=== PATIENT | male | born 1960 | race Caucasian/White ===

== ENCOUNTER 2017-02-19 11:51 | Emergency (ER) | payer BC ==
[~2017-02-19] VITALS: Ht 182.9 cm; Wt 112.0 kg
[2017-02-19 11:57] VITALS: TEMP 37.1; Ht 182.9 cm; Wt 112.0 kg
[2017-02-19] MEDS ORDERED: HYDR-5688 PO (12:56)
[2017-02-19 13:03] VITALS: BP 142/79; PULSE 71; O2SAT 96
--- NOTE | 2017-02-20 14:17 | EMERGENCY ROOM VISIT NOTE ---
ED Visit Note First contact with patient: 12:04 Chief Complaint: Back pain. History of Present Illness: Mr. Wei is a 56-year-old white male who ambulates into the ED accompanied by female friend complaining of lumbar back pain. Historically patient reports that he has a 30 year history of chronic back pain. He reports this has never really been evaluated by medical professional and he has had no imaging done. He does report intermittently he goes to a chiropractor and has mild to moderate relief of his discomfort. Patient reports approximately 2 days ago he woke up with mild lumbar back pain. He then did work around the house including shoveling coal and raking rocks and since that time his pain has gradually increased in intensity. At rest he describes his pain as a sharp discomfort and with moving he describes it as a stabbing pain. The pain is located in a bandlike fashion across the L4-S15 area on both sides of the lumbar spine. The pain is currently rated the pain is radiating into the right buttocks and then down the posterior right leg to the level of the knee. His pain worsens with all movement of the back. He has not identified any alleviating factors related to the pain. He reports he has been using Flexeril that was previously prescribed for shoulder injury without relief of his discomfort. Additionally he reports intermittently when he is moving from the sitting to standing position he feels like his right leg is about to give out but it does not. He denies any associated fevers, chills, sweats, skin eruptions, skin color changes, upper respiratory tract symptoms, chest pain, shortness of breath, abdominal pain, nausea, vomiting, diarrhea, constipation, rectal bleeding, black /tarry stools, genital paresthesias, bowel and bladder dysfunction, lower extremity numbness/tingling. Review of Systems: As noted above in history of present illness. All body systems were reviewed and found to be negative as noted above. Past Medical History: Hypertension, asthma, status post appendectomy and pin placement and hip Current Medications: Patient denies. Allergies to Medications: Patient denies. Social History: Patient is currently employed; he feels safe in his home environment; he admits to tobacco and alcohol use. Physical Examination: Vital Signs: Date Time Temp Pulse Resp B/P Pulse Ox O2 Delivery O2 Flow Rate FiO2 02/19/17 13:03 71 142/79 96 02/19/17 11:57 37.1 78 16 161/82 96 GENERAL: 56-year-old male in moderate distress due to pain, nontoxic-appearing, afebrile and hemodynamically stable. NEUROLOGICAL: Awake, alert and oriented to person, place and time. Answering questions appropriately and following commands. Normal gait. Good hand eye coordination. No focal motor sensory deficits. SKIN: Warm, dry and pink. No soft tissue eruptions or trauma noted. BACK: No tenderness over the bony cervical and thoracic spine. No CVA tenderness. Mild tenderness over the bilateral S5-S1 area and throughout the sacroiliac area. I do not appreciate any bony deformity, step-offs, crepitus, swelling or ecchymosis. Decreased range of motion in all movements due to pain. He has a negative right straight leg test but does have a slightly positive left leg test. THORAX: Lungs sounds are clear to auscultation and equal bilaterally with symmetrical chest wall. ABDOMEN: Flat, soft and nontender. Positive bowel sounds in all quadrants. No guarding, rigidity or organomegaly. EXTREMITIES: Moves all extremities well on command and with purpose. All distal neurovascular statuses are intact and equal bilaterally. No calf tenderness or cords. Lower Extremities: No tenderness throughout the joints of the musculature. 4/5 muscle strength in flexion, extension, abduction and abduction of the hips, flexion and extension of the knees and plantar flexion and dorsiflexion of the ankles. 2+ patellar and Achilles the tendon reflexes intact and equal bilaterally. He was able to distinguish light sensations through all dermatomes. ED Course: Patient is assessed as noted above. Patient was educated about tonight's findings and instructed on his treatment plan; he verbalizes understanding and agreement with this plan. Clinical Impression: Lumbar back pain. Disposition: Patient discharged home in stable condition accompanied by his and ; prior to departure he was reassessed and subjectively reported slightly better and rated his discomfort 8/10. Plan: Patient was placed on a sliding pain scale of ibuprofen, acetaminophen and [place] ; appropriate precautions were discussed with the patient with narcotic use. Patient was encouraged to continue his current Flexeril prescription for muscle spasm. Patient was encouraged use ice on areas of pain. Patient was educated on proper lifting and moving techniques. Patient was encouraged to follow-up with his primary care provider if no better in 3-5 days. Patient was signed off of 3 days of work. Patient was encouraged return ED for fevers abdominal pain, leg weakness/ numbness/tingling, rectal/genital paresthesias, bowel and bladder dysfunction or any new/concerning symptoms.
[2017-02-20] MEDS ORDERED: LISI-461 PO (14:23)
[2017-02-20] MEDS ORDERED: MONT4GRA PO (14:23)
[2017-02-20] MEDS ORDERED: ASPCH81X PO (14:23)
[2017-02-20] MEDS ORDERED: CYCL5TAB PO (14:23)
[2017-02-20] MEDS ORDERED: IBUP-103 PO (14:23)
[2017-02-20] MEDS ORDERED: PSEU60TA80 PO (14:23)
[2017-02-20] MEDS ORDERED: MONT1TAB3 PO (17:14)
[2017-02-20] MEDS ORDERED: CETI10TA84 PO (17:14)
[2017-02-20] MEDS ORDERED: ALBU18002 INH (17:14)
[2017-02-20] MEDS ORDERED: MTR/600 PO (17:14)
[2017-02-20] MEDS ORDERED: NZRCR EXT (17:14)
[2017-02-22] MEDS ORDERED: HYDR-5688 PO (17:55)
[2017-02-22] MEDS ORDERED: TRD10 PO (17:55)
[2017-02-22] MEDS ORDERED: CLC100 PO (17:55)
[2017-02-22] MEDS ORDERED: METH4PAK PO (17:55)
[2017-03-13] MEDS ORDERED: IBUP-1450 PO (09:48)
[2017-03-13] MEDS ORDERED: ALBU18002 INH (09:48)
[2017-03-13] MEDS ORDERED: CYCL10TA6 PO (09:48)
[2017-03-13] MEDS ORDERED: HYDR-5688 PO (09:48)
[2017-03-13] MEDS ORDERED: CETI10TA84 PO (09:48)
[2017-03-13] MEDS ORDERED: NZRCR TOP (09:48)
[2017-03-13] MEDS ORDERED: ASPI81TA28 PO (09:48)
[2017-03-13] MEDS ORDERED: LISI-791 PO (09:48)
== END 2017-02-19 13:05 | disposition home or self-care (01) ==
LOC: C.EDB 11:52 → C.EDD 13:05
DX: M54.9 Dorsalgia, unspecified (principal); I10 Essential (primary) hypertension; J45.909 Unspecified asthma, uncomplicated; F17.200 Nicotine dependence, unspecified, uncomplicated

== ENCOUNTER 2017-02-20 13:30 | Observation (INO) | payer BC ==
[~2017-02-20] VITALS: Ht 182.9 cm; Wt 113.8 kg
[~2017-02-20 13:30] MED LIST: HYDR-5688 PO
[2017-02-20] MEDS ORDERED: ONDANSETRON INJ 2 MG/ML 2 ML VIAL IV STA (13:45)
[2017-02-20] MEDS ORDERED: HYDROmorphone INJ 2 MG/ML SYR/VIAL IV STA (13:45)
[2017-02-20] MEDS ORDERED: MONT4GRA PO (14:23)
[2017-02-20] MEDS ORDERED: LISI-461 PO (14:23)
[2017-02-20] MEDS ORDERED: IBUP-103 PO (14:23)
[2017-02-20] MEDS ORDERED: CYCL5TAB PO (14:23)
[2017-02-20] MEDS ORDERED: PSEU60TA80 PO (14:23)
[2017-02-20] MEDS ORDERED: ASPCH81X PO (14:23)
[2017-02-20 14:28] LABS: BASO % 0.2 %; BASO ABS # 0.02 K/uL (0-0.2); COMPLETE YES; EOS % 0.6 %; HEMATOCRIT 45.7 % (42-52); IG% 0.3 %; LYMPH % 11.7 %; LYMPH ABS # 1.55 K/uL (1.2-3.4); MEAN CORPUSCULAR HEMOGLOBIN 33.5 pg (25-34); MEAN CORPUSCULAR HGB CONC 35.2 g/dl (32-36); MEAN PLATELET VOLUME 9.1 fL (7.4-10.4); MONO % 5.9 %; NEUT % 81.3 %; PLATELET COUNT 268 K/uL (130-400); RED BLOOD COUNT 4.81 M/uL (4.7-6.1)
[2017-02-20 14:53] LABS: CREATININE 0.66 mg/dl (0.60-1.40)
[2017-02-20 14:54] LABS: BUN/CREATININE RATIO 20.3 (10-20); CALCIUM 8.8 mg/dl (8.5-10.1); POTASSIUM 4.2 mmol/L (3.5-5.1)
[2017-02-20 14:56] LABS: C-REACTIVE PROTEIN 1.36 mg/dl (0-0.29)
--- NOTE | 2017-02-20 16:02 | DIAGNOSTIC IMAGING REPORT ---
MRI LUMBAR SPINE W/O CONTRAST CLINICAL HISTORY: Back pain with right leg radiculopathy. TECHNIQUE: Sagittal and axial T1, T2 and STIR images were obtained. COMPARISON STUDY: No previous studies for comparison. OBSERVATIONS: The vertebral bodies and posterior elements appear intact. There is no abnormal bony signal present to suggest a marrow replacement process. L1-2: No disc protrusions or extrusions. No evidence of spinal canal or neural foraminal compromise. L2-3: No disc protrusions or extrusions. No evidence of spinal canal or neural foraminal compromise. L3-4: There is a very large central extruded disc herniation with marked compression of the thecal sac. There is no significant foraminal narrowing. L4-5: There is a tiny central disc protrusion. There is no significant spinal or foraminal stenosis. L5-S1: There is a tiny broad-based central disc protrusion. There is no significant spinal or foraminal stenosis. No abnormalities of the conus are visualized on this noncontrast study IMPRESSION: Very large central extruded disc herniation with marked secondary compression of the thecal sac at the L3-4 level. Electronically signed by: Sean Villasenor M.D. 02/20/2017 4:01 PM Dictated Date/Time: 02/20/2017 3:56 PM
[2017-02-20] MEDS ORDERED: HYDROmorphone INJ 0.5 MG/0.5 ML SYR IV STA (16:18)
[2017-02-20] MEDS ORDERED: METHYLPREDNISOLONE 125 MG VIAL IV STA (16:18)
[2017-02-20] MEDS ORDERED: IV FLUIDS COMPLETED PRN (17:00)
[2017-02-20] MEDS ORDERED: ALBU18002 INH (17:14)
[2017-02-20] MEDS ORDERED: MONT1TAB3 PO (17:14)
[2017-02-20] MEDS ORDERED: MTR/600 PO (17:14)
[2017-02-20] MEDS ORDERED: CETI10TA84 PO (17:14)
[2017-02-20] MEDS ORDERED: NZRCR EXT (17:14)
[2017-02-20] MEDS ORDERED: ALBUTEROL HFA 8 GM INHALER INH PRN (17:15)
[2017-02-20] MEDS ORDERED: CYCLOBENZAPRINE HCL 5 MG TAB PO PRN (17:15)
[2017-02-20] MEDS ORDERED: ONDANSETRON INJ 2 MG/ML 2 ML VIAL IV PRN (17:15)
[2017-02-20] MEDS ORDERED: CETIRIZINE HCL 10 MG TAB PO PRN (17:15)
--- NOTE | 2017-02-20 17:49 | History and Physical ---
History & Physical Date & Time of Service: Feb 20, 2017 at 17:20 Chief Complaint: Back Pain Primary Care Physician: Solo Garcia D.OAry History of Present Illness Source: patient, clinic records, hospital records This is a 56 year old male with HTN, asthma, sleep apnea on CPAP, and other problems listed below who presents to the ED with low back pain. Patient reports having intermittent low back pain x 30 years which worsened 4 days ago. There was no recent trauma/ injury. He reports pain in lumbar area which radiates to the right lower extremity with burning pain. He was seen in ER yesterday for his pain and discharged with [place], which he took at home without relief. Then today while getting into the car he felt a popping/ needle like sensation in his low back and almost collapsed from severe pain. He was unable to ambulate due to the pain and was brought to the ER by ambulance. He was treated with total of 1.5 mg Dilaudid and IV Solu-Medrol in ER. Pain is now improved to 3/10. He voided normally this morning. Last BM was 3 days ago. He denies lower extremity weakness, numbness, groin paresthesias, bowel or bladder incontinence, fever, chills, cough, chest pain, SOB, abdominal pain, N/V/D. No history of spinal surgery. Past Medical/Surgical History Medical Problems: (1) Asthma Status: Chronic (2) Back pain Status: Chronic (3) History of Lyme disease Permanent Comment: treated in 2010 Status: Chronic (4) HTN (hypertension) Status: Chronic (5) Obesity Status: Chronic (6) ALEC on CPAP Status: Chronic Surgical Problems: (1) H/O shoulder surgery Status: Chronic (2) H/O vasectomy Status: Chronic (3) History of hip surgery Status: Chronic (4) S/P appendectomy Status: Chronic (5) S/P tonsillectomy and adenoidectomy Status: Chronic Family History FH: cancer MOTHER (breast CA) FH: stomach cancer FATHER Stroke FATHER Social History Smoking Status: Current Some Day Smoker (cigars) Alcohol Use: socially Multi-Drug Resistant Organisms History of MDRO: No Allergies Coded Allergies: No Known Allergies (Unverified , 02/20/17) Home Medications Scheduled Aspirin (Aspirin Chewable), 81 MG PO DAILY Lisinopril (Zestril), 10 MG PO DAILY Montelukast Sodium (Singulair), 1 TAB PO DAILY Scheduled PRN Albuterol Sulfate (Proair Respiclick), 2 PUFFS INH Q4 PRN for SOB/Wheezing Cetirizine (Zyrtec), 10 MG PO DAILY PRN for allergy symptoms Cyclobenzaprine Hcl (Flexeril), 1 TAB PO HS PRN for Muscle Spasms Hydrocodone/Acetaminophen 5MG/325MG ([place] 5MG/325MG), 1-2 TABLET PO Q6H PRN for Pain Ibuprofen (Ibuprofen), 600 MG PO HS PRN for Pain Ketoconazole (Ketoconazole), 1 APPLN EXT DAILY PRN for rash Pseudoephedrine-Guaifenesin (Mucinex D), 1 TAB PO BID PRN for Cough Review of Systems Ten point ROS performed with pertinent positives and negatives noted in HPI. Physical Exam Vital Signs Date Time Temp Pulse Resp B/P Pulse Ox O2 Delivery O2 Flow Rate FiO2 02/20/17 16:15 86 20 103/61 96 Room Air 02/20/17 14:29 78 20 93/77 96 Room Air 02/20/17 14:20 84 20 146/79 97 Room Air 02/20/17 13:34 36.7 15 Room Air General Appearance: no apparent distress, + obese, + pertinent finding (alert 56 year old male, comfortable while lying in bed, daughter at bedside) Head: normocephalic, atraumatic Eyes: normal inspection, PERRL, EOMI, sclerae normal ENT: hearing grossly normal, pharynx normal Neck: supple, trachea midline Respiratory/Chest: lungs clear, normal breath sounds, no respiratory distress, no accessory muscle use Cardiovascular: regular rate, rhythm, no murmur Abdomen/GI: normal bowel sounds, non tender, soft Back: + pertinent finding (+ lumbosacral paraspinal tenderness. + straight leg raise on the left. ) Extremities/Musculoskelatal: no calf tenderness, no pedal edema Neurologic/Psych: alert, normal mood/affect, oriented x 3, + pertinent finding (hip flexion 4/5 bilat. ankle flexion/ extension 5/5 bilat. sensation to light tough grossly intact BLLE. ) Skin: normal color, warm/dry Diagnostics Laboratory Results Results Past 24 Hours Test 02/20/17 14:10 Range/Units White Blood Count 13.20 4.8-10.8 K/uL Red Blood Count 4.81 4.7-6.1 M/uL Hemoglobin 16.1 14.0-18.0 g/dL Hematocrit 45.7 42-52 % Mean Corpuscular Volume 95.0 80-100 fL Mean Corpuscular Hemoglobin 33.5 25-34 pg Mean Corpuscular Hemoglobin Concent 35.2 32-36 g/dl Platelet Count 268 130-400 K/uL Mean Platelet Volume 9.1 7.4-10.4 fL Neutrophils (%) (Auto) 81.3 % Lymphocytes (%) (Auto) 11.7 % Monocytes (%) (Auto) 5.9 % Eosinophils (%) (Auto) 0.6 % Basophils (%) (Auto) 0.2 % Neutrophils # (Auto) 10.73 1.4-6.5 K/uL Lymphocytes # (Auto) 1.55 1.2-3.4 K/uL Monocytes # (Auto) 0.78 0.11-0.59 K/uL Eosinophils # (Auto) 0.08 0-0.5 K/uL Basophils # (Auto) 0.02 0-0.2 K/uL RDW Standard Deviation 47.4 36.4-46.3 fL RDW Coefficient of Variation 13.6 11.5-14.5 % Immature Granulocyte % (Auto) 0.3 % Immature Granulocyte # (Auto) 0.04 0.00-0.02 K/uL Erythrocyte Sedimentation Rate 39 0-14 mm/hr Sodium Level 139 136-145 mmol/L Potassium Level 4.2 3.5-5.1 mmol/L Chloride Level 106 98-107 mmol/L Carbon Dioxide Level 25 21-32 mmol/L Anion Gap 8.0 3-11 mmol/L Blood Urea Nitrogen 13 7-18 mg/dl Creatinine 0.66 0.60-1.40 mg/dl Est Creatinine Clear Calc Drug Dose 160.8 ml/min Estimated GFR () 124.4 Estimated GFR (Non- 107.3 BUN/Creatinine Ratio 20.3 10-20 Random Glucose 88 70-99 mg/dl Calcium Level 8.8 8.5-10.1 mg/dl C-Reactive Protein 1.36 0-0.29 mg/dl Diagnostic Radiology MRI LUMBAR SPINE W/O CONTRAST CLINICAL HISTORY: Back pain with right leg radiculopathy. TECHNIQUE: Sagittal and axial T1, T2 and STIR images were obtained. COMPARISON STUDY: No previous studies for comparison. OBSERVATIONS: The vertebral bodies and posterior elements appear intact. There is no abnormal bony signal present to suggest a marrow replacement process. L1-2: No disc protrusions or extrusions. No evidence of spinal canal or neural foraminal compromise. L2-3: No disc protrusions or extrusions. No evidence of spinal canal or neural foraminal compromise. L3-4: There is a very large central extruded disc herniation with marked compression of the thecal sac. There is no significant foraminal narrowing. L4-5: There is a tiny central disc protrusion. There is no significant spinal or foraminal stenosis. L5-S1: There is a tiny broad-based central disc protrusion. There is no significant spinal or foraminal stenosis. No abnormalities of the conus are visualized on this noncontrast study IMPRESSION: Very large central extruded disc herniation with marked secondary compression of the thecal sac at the L3-4 level. Impression Assessment and Plan INTRACTABLE BACK PAIN/ LUMBAR DISC HERNIATION L-spine MRI- Very large central extruded disc herniation with marked secondary compression of the thecal sac at the L3-4 level Received Dilaudid and Solu-Medrol in ER Pain control with Dilaudid 1 mg IV q4h PRN pain Continue PRN Flexeril PT and OT evaluations Consult orthopedic surgery- Dr. Stuart is aware and will see tomorrow AM CONSTIPATION Added bowel regimen of docusate and Miralax HTN Had one borderline BP in ER Continue lisinopril with parameters ASTHMA Not in exacerbation Continue home inhaler and Singulair SLEEP APNEA Continue CPAP DVT PROPHYLAXIS Heparin SW FULL CODE DISPOSITION Observation to med/surg Follows with Dr. Solo Garcia for primary care Discussed with daughter at bedside Michelle Carlson; she would like to be present for ortho evaluation if possible; phone [phone] Patient seen in collaboration with Dr. Ocampo. Please see his addendum. Attending Addendum Pt was seen and examined with family member at bedside. Agreed with Jonelle CARRENO 's physical exam, assessment and plan. 56 year old male with PMH HTN, asthma, sleep apnea on CPAP, chronic back pain presents to the ED with worsening low back pain. Pt said that for the last few days his back pain get worst. He was seen in the ER last night and was discharge with [place] for the back pain. he said that this morning he heard a popping sound from his back while trying to get in the car. Pt said that after the popping sound he developed 10/10 burning pain in his back that radiated in his Right lower extremity. Denies any bowel or bladder loss. General- No acute distress Head- atraumatic Eyes- PERRL, EOMI ENT- oropharynx clear Neck- supple, no JVD Lungs- clear to auscultation and percussion Heart- regular rhythm; no murmur Abdomen- normal bowel sounds, soft Extremities- no calf tenderness Neuro- alert, oriented x 3; PERRL, EOMI; no facial palsy Skin- warm & dry A/P INTRACTABLE BACK PAIN/ LUMBAR DISC HERNIATION Lumbar MRI showed a very large central extruded disc herniation with marked secondary compression of the thecal sac at the L3-4 level Will do Pain control with Dilaudid 1 mg IV q4h PRN pain Continue PRN Flexeril PT and OT evaluations Consult orthopedic surgery Lab, imaging reviewed Please refer to Jonelle CARRENO's documentation for other problems. Javon Ocampo MD VTE Prophylaxis VTE Risk Assessment Done? Y/N: Yes Risk Level: Low
[2017-02-20 18:19] LABS: PARTIAL THROMBOPLASTIN RATIO 1.1; PROTHROMBIN TIME (PATIENT) 10.9 SECONDS (9.0-12.0)
[2017-02-20] MEDS: HYDROmorphone INJ 1 MG/ML SYR IV PRN (20:03)
[2017-02-20 22:06] VITALS: BP 147/80; PULSE 79; TEMP 37.4; O2SAT 100; Ht 182.9 cm; Wt 113.8 kg
[2017-02-20 22:29] LABS: URINE APPEARANCE CLEAR (CLEAR); URINE BILIRUBIN NEG (NEG); URINE COLOR YELLOW; URINE NITRITE NEG (NEG); URINE SPECIFIC GRAVITY 1.023 (1.000-1.030); UROBILINOGEN NEG (NEG)
[2017-02-20] MEDS: DOCUSATE SODIUM 100 MG CAP PO SCH (22:30)
[2017-02-20] MEDS: POLYETHYLENE (MIRALAX) 17 GM PACK PO SCH (22:30)
[2017-02-20] MEDS: HEPARIN SOD 5000 UNIT/0.5 ML CARP SQ SCH (22:31)
[2017-02-20 22:33] LABS: MANUAL MICROSCOPIC REQUIRED? NO; REVIEW REQ? NO
[2017-02-20 23:14] VITALS: BP 123/68; PULSE 81; TEMP 37.1; O2SAT 95
--- NOTE | 2017-02-20 23:23 | EMERGENCY ROOM VISIT NOTE ---
ED Visit Note First contact with patient: 13:38 Chief Complaint: Back pain. History of Present Illness: Mr. Wei is a 56-year-old white male who is brought into the ED via ambulance accompanied by multiple family members. Historically patient reports that he has a 30 year history of chronic back pain. I have seen this patient last evening for complaints of lumbar back pain. He was found to be stable at that time and discharged with a narcotic prescription and follow-up. He reports today he was getting out of the car and felt a popping sensation in the L4-L5 area and developed an acute onset of severe pain and reported that his right leg gave out he was not able to stand. EMS was activated and was brought into the ED. EMS reports patient was stable and had no acute changes en route. Currently he describes a severe stabbing pain across his lower back in the L4 through S2 on area and into the sacroiliac joints. He rates his discomfort 10/ 10. Pain is now radiating down into the buttocks and posterior leg and then wrapping around at the level of the knee all the way to the lower leg. His pain worsens with all movement of the back, standing, ambulation. He has not identified any alleviating factors related to the pain. Earlier before the acute onset of pain he reports taking his Vicodin as prescribed and had no relief of his discomfort. He denies any associated fevers, chills, sweats, skin eruptions, skin color changes, upper respiratory tract symptoms, chest pain, shortness of breath, abdominal pain, nausea, vomiting, diarrhea, constipation, rectal bleeding, black /tarry stools, genital paresthesias, bowel and bladder dysfunction, lower extremity numbness/tingling. Review of Systems: As noted above in history of present illness. All body systems were reviewed and found to be negative as noted above. Past Medical History: Hypertension, asthma, status post appendectomy and pin placement and hip Current Medications: Patient denies. Allergies to Medications: Patient denies. Social History: Patient is currently employed; he feels safe in his home environment; he admits to tobacco and alcohol use. Physical Examination: Vital Signs: Date Time Temp Pulse Resp B/P Pulse Ox O2 Delivery O2 Flow Rate FiO2 02/20/17 16:15 86 20 103/61 96 Room Air 02/20/17 14:29 78 20 93/77 96 Room Air 02/20/17 14:20 84 20 146/79 97 Room Air 02/20/17 13:34 36.7 15 Room Air GENERAL: 56-year-old male in severe distress due to pain, nontoxic-appearing, afebrile and hemodynamically stable. NEUROLOGICAL: Awake, alert and oriented to person, place and time. Answering questions appropriately and following commands. Normal gait. Good hand eye coordination. No focal motor sensory deficits. SKIN: Warm, dry and pink. No soft tissue eruptions or trauma noted. BACK: No tenderness over the bony cervical and thoracic spine. No CVA tenderness. Mild tenderness over the bilateral S5-S1 area and throughout the sacroiliac area. I do not appreciate any bony deformity, step-offs, crepitus, swelling or ecchymosis. Unable to perform straight leg raise test due to patient discomfort. THORAX: Lungs sounds are clear to auscultation and equal bilaterally with symmetrical chest wall. ABDOMEN: Flat, soft and nontender. Positive bowel sounds in all quadrants. No guarding, rigidity or organomegaly. EXTREMITIES: Moves all extremities well on command and with purpose. All distal neurovascular statuses are intact and equal bilaterally. No calf tenderness or cords. Lower Extremities: No tenderness throughout the joints of the musculature. 4/5 muscle strength in flexion, extension, abduction and abduction of the hips, flexion and extension of the knees and plantar flexion and dorsiflexion of the ankles. 2+ patellar and Achilles the tendon reflexes intact and equal bilaterally. He was able to distinguish light sensations through all dermatomes. ED Course: Patient is assessed as noted above. Laboratory Testing: Test 02/20/17 14:10 Range/Units White Blood Count 13.20 4.8-10.8 K/uL Red Blood Count 4.81 4.7-6.1 M/uL Hemoglobin 16.1 14.0-18.0 g/dL Hematocrit 45.7 42-52 % Mean Corpuscular Volume 95.0 80-100 fL Mean Corpuscular Hemoglobin 33.5 25-34 pg Mean Corpuscular Hemoglobin Concent 35.2 32-36 g/dl Platelet Count 268 130-400 K/uL Mean Platelet Volume 9.1 7.4-10.4 fL Neutrophils (%) (Auto) 81.3 % Lymphocytes (%) (Auto) 11.7 % Monocytes (%) (Auto) 5.9 % Eosinophils (%) (Auto) 0.6 % Basophils (%) (Auto) 0.2 % Neutrophils # (Auto) 10.73 1.4-6.5 K/uL Lymphocytes # (Auto) 1.55 1.2-3.4 K/uL Monocytes # (Auto) 0.78 0.11-0.59 K/uL Eosinophils # (Auto) 0.08 0-0.5 K/uL Basophils # (Auto) 0.02 0-0.2 K/uL RDW Standard Deviation 47.4 36.4-46.3 fL RDW Coefficient of Variation 13.6 11.5-14.5 % Immature Granulocyte % (Auto) 0.3 % Immature Granulocyte # (Auto) 0.04 0.00-0.02 K/uL Erythrocyte Sedimentation Rate 39 0-14 mm/hr Prothrombin Time 10.9 9.0-12.0 SECONDS Prothromb Time International Ratio 1.0 0.9-1.1 Activated Partial Thromboplast Time 29.5 21.0-31.0 SECONDS Partial Thromboplastin Ratio 1.1 Sodium Level 139 136-145 mmol/L Potassium Level 4.2 3.5-5.1 mmol/L Chloride Level 106 98-107 mmol/L Carbon Dioxide Level 25 21-32 mmol/L Anion Gap 8.0 3-11 mmol/L Blood Urea Nitrogen 13 7-18 mg/dl Creatinine 0.66 0.60-1.40 mg/dl Est Creatinine Clear Calc Drug Dose 160.8 ml/min Estimated GFR () 124.4 Estimated GFR (Non- 107.3 BUN/Creatinine Ratio 20.3 10-20 Random Glucose 88 70-99 mg/dl Calcium Level 8.8 8.5-10.1 mg/dl C-Reactive Protein 1.36 0-0.29 mg/dl Lumbar Spine MRI: Was reviewed by myself and read by the radiologist showing L3- L4 with a very large central extruded disc herniation with marked compression of the thecal sac and L5-S1 tiny broad-based central disc protrusion with no significant spinal or foraminal stenosis. Patient was hydrated with normal saline and received a total of 1.5 mg of Dilaudid IV, 4 mg of Zofran IV and 125 mg of Solu-Medrol IV. Patient was reassessed multiple times during his stay in the emergency department. Patient's case was reviewed with Dr. Ken; we agreed on diagnostic approach, treatment, disposition and plan. Patient's case was consulted with Dr. Stuart, orthopedic clinical safety specialist; he questioned the constipation and be home for possible office follow-up I told him I did not feel the patient would feel comfortable going home because of the ongoing pain and feeling like his right leg was weak. He requested that I speak to the hospitalist patient admitted for pain control and he would see him tomorrow morning in the hospital for evaluation. Patient's case was consulted with Jonelle Hensley, hospitalist for medical observation/admission. Patient was educated about tonight's findings. Clinical Impression: Irretractable back pain. L3-L4 disc herniation. Disposition and Plan: Patient be brought in the hospital for observation/ admission; please see hospitalist's notes and orders for final disposition and plan.
[2017-02-21] MEDS: HYDROmorphone INJ 1 MG/ML SYR IV PRN ×5 (00:02→21:45)
[2017-02-21] MEDS: HEPARIN SOD 5000 UNIT/0.5 ML CARP SQ SCH (06:12)
[2017-02-21 07:43] VITALS: BP 114/73; PULSE 77; TEMP 36.7; O2SAT 96
[2017-02-21] MEDS: ACETAMINOPHEN 325 MG TAB PO PRN ×2 (08:04→17:01)
[2017-02-21] MEDS: DOCUSATE SODIUM 100 MG CAP PO SCH ×2 (09:01→20:43)
[2017-02-21] MEDS: MONTELUKAST SOD 10 MG TAB PO SCH (09:01)
[2017-02-21] MEDS: ASPIRIN 81 MG ECTAB PO SCH (09:01)
[2017-02-21] MEDS: LISINOPRIL 10 MG TAB PO SCH (09:01)
[2017-02-21 09:02] VITALS: BP 146/75; PULSE 87
--- NOTE | 2017-02-21 09:31 | CONSULTATION REPORT ---
DATE OF CONSULTATION: 02/20/2017 CHIEF COMPLAINT: Back pain, lower extremity difficulty. HISTORY OF PRESENT ILLNESS: Darci is a delightful patient. I am meeting him first time this morning about 8:30 [facility] up in room 352. He was admitted to the hospitalist service for pain control and I am very thankful for that. He has back and lower extremity difficulty. He has a large disc herniation, lumbar spine. He will became nonambulatory as of yesterday at the Emergency Room. He actually could not stand I believe secondary to pain versus true weakness as his strength is pretty good today and in the bed position. PAST MEDICAL HISTORY: Asthma, chronic back pain, history of Lyme's disease, hypertension, on CPAP. PAST SURGICAL HISTORY: Hip surgery, appendectomy, vasectomy, tonsils and adenoids, shoulder issues. FAMILY HISTORY: Carcinoma. SOCIAL HISTORY: Minimal alcohol. Minimal smoking, no drug history. ALLERGIES: Not known. MEDICATIONS: At home Lisinopril and Singulair. REVIEW OF SYSTEMS: Denies any blurred vision, double vision, weight loss or gain, fevers, sweats, chills, or bowel or bladder incontinence. He has pain which is significant; lower extremity difficulties as well. OBJECTIVE: VITAL SIGNS: Blood pressure 146/80, pulse of 80, respirations of 16. SKIN: Intact. Vascular structures intact. No adenopathy. HEART AND LUNG: Normal, regular rate and rhythm. ABDOMEN: Soft, nontender. MUSCULOSKELETAL: He has paraspinal muscle spasticity. He has significant pain with percussion. He has profound decreased range of motion. NEUROLOGIC: Intact. He had slight weakness I felt in the quadriceps, but it may be secondary to pain. His sensation grossly intact. Motor strength intact. Reflexes intact as well. No gross neurological issues. LABORATORY DATA: White cell count 13.20, hemoglobin 16.1. C-reactive protein 1.36. DIAGNOSTIC IMAGING: At L3-L4 very large central disc protrusion, marked compression of the thecal sac, some foraminal narrowing as well. Some degenerative changes elsewhere but 3-4 is the dominant pathology. IMPRESSION: Disc herniation L3-L4 lumbar spine in a gentleman with no cauda equina signs and relatively intact neurological. DISPOSITION: 1. He will be admitted to the service of the medical team and I am very thankful for that. 2. I have consulted the patient this morning. Surgery may be eminent meaning he may need it. We are not going to jump into it and just place him on the schedule quickly. There is no urgent matter, although pain certainly is concerning. We placed him some Toradol along with some Solu-Medrol or Decadron. Will probably quiet this down. Will get PT involved, OT involved and see if we can get him up and ambulatory. This could play out either we get him home tomorrow or Saturday, schedule surgery as an outpatient down the road or if he cannot get up on his feet and function I will schedule surgery Saturday, Saturday or Saturday of the coming week.
[2017-02-21] MEDS ORDERED: DEXAMETHASONE INJ 8 MG in SYRINGE 0 ML IV SCH (10:00)
[2017-02-21] MEDS: KETOROLAC TROMETHAMINE 15 MG/ML VIAL IV PRN ×2 (12:17→19:59)
--- NOTE | 2017-02-21 14:16 | HISTORY & PHYSICAL EXAMINATION ---
DATE OF ADMISSION: 02/20/2017 SUBJECTIVE: He is improving. Medications helping him immensely. He is taking a walk, albeit short. Still has some numbness and tingling and weakness on the left quadriceps consistent with his imaging and pathology. IMPRESSION: Disk herniation, lumbar spine, L3-L4. DISPOSITION: I anticipate us getting Darci home tomorrow. I would recommend on the with some steroids by mouth along with some Toradol medication for pain and bed rest, essentially up to the bathroom. I would like to see him back in the office if at all possible Saturday or Saturday next week. If he fails, we cannot get him home then we will have to offer him surgery or would be a better option for him. I would like to do this electively during the normal business versus trying to squeeze him on a weekend as I explained to the patient as well. Instructions, precautions I will revisit Darci in the morning, which would be Saturday and again hopefully we can get him home later on tomorrow.
[2017-02-21] MEDS ORDERED: BISACODYL 5 MG TABEC PO PRN (14:30)
--- NOTE | 2017-02-21 14:30 | Progress Note ---
Internal Med Progress Note Date of Service: Feb 21, 2017. Provider Documentation: SUBJECTIVE: Patient c/o pain in lower back, radiating in lower extremities. No localized weakness, no bladder/bowel incontinence. No fever, chills, nausea, vomiting, abdominal pain. OBJECTIVE: Vital Signs-as noted below Exam: General-AAOX3, mild distress secondary to pain Neck-Supple, No JVD Lungs-AEBE, no wheezing, crackles Heart-S1, S2 normal, no murmurs Extremities-No edema Neuro-No focal deficits. Power 5/5 all extremities, no loss of sensation in extremities Lab data as noted below. ASSESSMENT & PLAN: LUMBAR DISC HERNIATION L3-L4 L-spine MRI- Very large central extruded disc herniation with marked secondary compression of the thecal sac at the L3-4 level -IV Decadron 8 mg q 6 hours, IV Toradol 15 mg q [address] Stuart -IV Dilaudid 1 mg q 4 hours PRN for pain -Continue with PRN Flexeril -PT/OT evaluations -Consulted ortho- Appreciate inputs from ortho- Plan is to control pain, PT/OT , discharge in AM with outpatient elective surgery. If unable to control pain, will plan surgery during this admission CONSTIPATION -Miralex, Colace. Will add dulcolax -Precipitated by pain medications- Narcotics HTN Stable -Continue lisinopril with parameters ASTHMA Not in exacerbation -Continue home inhaler and Singulair SLEEP APNEA -Continue CPAP DVT PROPHYLAXIS -Heparin SQ FULL CODE DISPOSITION Observation to med/surg Follows with Dr. Solo Garcia for primary care Vital Signs: Date Time Temp Pulse Resp B/P Pulse Ox O2 Delivery O2 Flow Rate FiO2 02/21/17 09:02 87 146/75 02/21/17 08:20 Room Air 02/21/17 07:43 36.7 77 20 114/73 96 Room Air 02/20/17 23:14 37.1 81 16 123/68 95 Room Air 02/20/17 23:00 Room Air CPAP 02/20/17 22:06 37.4 79 18 147/80 100 Room Air 02/20/17 19:18 91 20 107/84 93 Room Air 02/20/17 18:11 72 20 115/74 90 Room Air 02/20/17 16:15 86 20 103/61 96 Room Air 02/20/17 14:29 78 20 93/77 96 Room Air Lab Results: Results Past 24 Hours Test 02/20/17 21:39 Range/Units Urine Color YELLOW Urine Appearance CLEAR CLEAR Urine pH 5.0 4.5-7.5 Urine Specific [place] 1.023 1.000-1.030 Urine Protein NEG NEG Urine Glucose (UA) NEG NEG Urine Ketones TRACE NEG Urine Occult Blood NEG NEG Urine Nitrite NEG NEG Urine Bilirubin NEG NEG Urine Urobilinogen NEG NEG Urine Leukocyte Esterase NEG NEG
[2017-02-21 15:45] VITALS: BP 109/66; PULSE 75; TEMP 36.9; O2SAT 93
[2017-02-21] MEDS: DEXAMETHASONE INJ 8 MG in SYRINGE 0 ML IV SCH (17:39)
[2017-02-21] MEDS: POLYETHYLENE (MIRALAX) 17 GM PACK PO SCH (20:43)
[2017-02-21 23:09] VITALS: BP 116/71; PULSE 68; TEMP 36.8; O2SAT 94
[2017-02-22] MEDS: DEXAMETHASONE INJ 8 MG in SYRINGE 0 ML IV SCH ×3 (00:06→11:31)
[2017-02-22] MEDS: HYDROmorphone INJ 1 MG/ML SYR IV PRN (05:04)
[2017-02-22 07:30] VITALS: BP 118/78; PULSE 72; TEMP 36.7; O2SAT 95
--- NOTE | 2017-02-22 07:36 | Discharge Instructions ---
Discharge Instructions Date of Service Feb 22, 2017. Admission Reason for Admission: Intractable Back Pain Lumbar Disc Herniation Discharge Discharge Diagnosis / Problem: disc herniation Discharge Goals Goal(s): Improve function Activity Recommendations Activity Limitations: as noted below Lifting Limitations: no more than 5 pounds Exercise/Sports Limitations: until after follow-up appointment May Resume Sexual Activity: after follow-up appointment Driving or Machine Use: home, rest, recover . Current Hospital Diet Patient's current hospital diet: AHA Diet (Heart Healthy) Discharge Diet Recommended Diet: Regular Diet Pending Studies Studies pending at discharge: no Medical Emergencies . Who to Call and When: Medical Emergencies: If at any time you feel your situation is an emergency, please call 911 immediately. . Non-Emergent Contact Non-Emergency issues call your: Surgeon Call Non-Emergent contact if: your pain is worsening . "Provider Documentation" section prepared by Silvio Stuart. VTE Core Measure Inpt VTE Proph given/why not?: Treatment not indicated
[2017-02-22] MEDS: KETOROLAC TROMETHAMINE 15 MG/ML VIAL IV PRN (07:44)
--- NOTE | 2017-02-22 07:51 | PROGRESS NOTE ---
DATE: 02/22/2017 SUBJECTIVE: Pain does seem to be controlled. He is up ambulatory. Denies nausea, vomiting. Still has some reported weakness. No fevers, sweats, chills. OBJECTIVE: Vital signs stable. MRI scan demonstrates a large disc herniation at L3-L4 lumbar spine. Neurologically normal. ASSESSMENT: Delightful gentleman, 56, with a disc herniation of lumbar spine of significance, which led to his appropriate hospital stay. DISPOSITION: I would like to get him home later today. He is not technically on my service but we can get him home hopefully sometime today which is 02/22/2017. I added prescriptions on his chart. We have his phone number and contact information. I would like to see him back in the office in approximately 4-5 days, which would be next week. The patient is to call for that appointment, , to try to get it next week. If he fails and cannot get home, then he will need surgery sometime next week as well.
[2017-02-22 09:01] VITALS: O2SAT 95
[2017-02-22] MEDS: MONTELUKAST SOD 10 MG TAB PO SCH (09:21)
[2017-02-22] MEDS: ASPIRIN 81 MG ECTAB PO SCH (09:21)
[2017-02-22] MEDS: DOCUSATE SODIUM 100 MG CAP PO SCH (09:21)
[2017-02-22] MEDS: LISINOPRIL 10 MG TAB PO SCH (09:22)
[2017-02-22 10:51] VITALS: BP 144/80; PULSE 78; O2SAT 94
[2017-02-22] MEDS ORDERED: HYDROCODONE/ACETAMOPHEN 5/325MG TAB PO PRN ×2 (12:30→16:30)
--- NOTE | 2017-02-22 12:58 | Progress Note ---
Internal Med Progress Note Date of Service: Feb 22, 2017. Provider Documentation: SUBJECTIVE: Patient 's pain is much better on medications today. Had a BM today. Tolerating activity better with walker No localized weakness, no bladder/bowel incontinence. No fever, chills, nausea, vomiting, abdominal pain. OBJECTIVE: Vital Signs-as noted below Exam: General-AAOX3, mild distress secondary to pain Neck-Supple, No JVD Lungs-AEBE, no wheezing, crackles Heart-S1, S2 normal, no murmurs Extremities-No edema Neuro-No focal deficits. Power 5/5 all extremities, no loss of sensation in extremities Lab data as noted below. ASSESSMENT & PLAN: LUMBAR DISC HERNIATION L3-L4 L-spine MRI- Very large central extruded disc herniation with marked secondary compression of the thecal sac at the L3-4 level -IV Decadron 8 mg q 6 hours, IV Toradol 15 mg q [address] Stuart -IV Dilaudid 1 mg q 4 hours PRN for pain -Continue with PRN Flexeril -PT/OT evaluations -Consulted ortho- Appreciate inputs from ortho- Plan is to control pain, PT/OT , discharge today with outpatient elective surgery. If unable to control pain, will plan surgery during this admission. PLAN: Will change IV medications to PO- Medrol dose pack, Toradol 10 mg PO QID, [place] 2 tabs q 6 hours prn for pain per ortho instructions. Okay to discharge today evening if pain is controlled on these medications. CONSTIPATION - Resolved -Miralex, Colace. Dulcolax PRN -Precipitated by pain medications- Narcotics HTN Stable -Continue lisinopril with parameters ASTHMA Not in exacerbation -Continue home inhaler and Singulair SLEEP APNEA -Continue CPAP DVT PROPHYLAXIS -Heparin SQ FULL CODE DISPOSITION Observation to med/surg Follows with Dr. Solo Garcia for primary care. Vital Signs: Date Time Temp Pulse Resp B/P Pulse Ox O2 Delivery O2 Flow Rate FiO2 02/22/17 09:01 95 Room Air 02/22/17 07:30 36.7 72 18 118/78 95 Room Air 02/22/17 07:25 Room Air 02/21/17 23:55 CPAP 02/21/17 23:09 36.8 68 14 116/71 94 CPAP 02/21/17 15:45 36.9 75 16 109/66 93 Room Air 02/21/17 15:15 Room Air
[2017-02-22] MEDS ORDERED: METHYLPREDNISOLONE 4MG TAB, 6 DAY TAPER PO SCH (13:00)
[2017-02-22] MEDS: METHYLPREDNISOLONE 4 MG TAB PO SCH ×2 (13:54→18:02)
[2017-02-22] MEDS: KETOROLAC TROMETHAMINE 10 MG TAB PO SCH ×2 (13:55→16:29)
[2017-02-22] MEDS ORDERED: KETOROLAC TROMETHAMINE 10 MG TAB PO SCH (14:00)
[2017-02-22 15:10] VITALS: BP 134/65; PULSE 77; TEMP 37.1; O2SAT 94
[2017-02-22] MEDS ORDERED: CLC100 PO (17:55)
[2017-02-22] MEDS ORDERED: TRD10 PO (17:55)
[2017-02-22] MEDS ORDERED: HYDR-5688 PO (17:55)
[2017-02-22] MEDS ORDERED: METH4PAK PO (17:55)
--- NOTE | 2017-02-22 17:59 | Discharge Instructions ---
Discharge Instructions Date of Service Feb 22, 2017. Admission Reason for Admission: Intractable Back Pain Lumbar Disc Herniation Discharge Discharge Diagnosis / Problem: 1. Lumbar disc herniation L3-L4 Discharge Goals Goal(s): Decrease discomfort, Increase independence Activity Recommendations Activity Limitations: per Instructions/Follow-up section (as tolerated ) . Instructions / Follow-Up Instructions / Follow-Up MEDICATION CHANGES: Pain medications : 1. Hydrocodone/Acetaminophen 2 tabs q 6 hours as needed for severe pain 2. Toradol 10 mg q 6 hours 3. Medrol dose pack as instructed 4. Colace 100 mg PO BID for constipation while being on narcotics. May stop if loose Bowel Movements FOLLOW UP 1. With PCP- Dr Garcia 03/04/17 at 1:10 PM 2. With orthopedic- Dr Stuart per his instructions---> Call [phone] for for appointment in 4-5 days next week Current Hospital Diet Patient's current hospital diet: AHA Diet (Heart Healthy) Discharge Diet Recommended Diet: AHA Diet (Heart Healthy), Low Sodium Diet (2gm Na) Pending Studies Studies pending at discharge: no Medical Emergencies . Who to Call and When: Medical Emergencies: If at any time you feel your situation is an emergency, please call 911 immediately. . Non-Emergent Contact Non-Emergency issues call your: Primary Care Provider, Specialist (orthopedics) . . "Provider Documentation" section prepared by Renee Ledbetter. VTE Core Measure Inpt VTE Proph given/why not?: Treatment not indicated
--- NOTE | 2017-02-22 18:03 | Discharge Summary ---
Discharge Summary Date of Service Feb 22, 2017. Discharge Summary Admission Date: Feb 20, 2017 at 16:43 Discharge Date: Feb 22, 2017 Discharge Disposition: Home Principal Diagnosis: 1. Lumbar disc herniation L3-L4 Secondary Diagnoses/Problems: 1. HTN 2. Asthma 3. ALEC Procedures: Lumbar MRI Pain management PT/OT Consultations: Orthopedics, Dr Stuart Pending Studies/Follow-Up: Instructions / Follow-Up MEDICATION CHANGES: Pain medications : 1. Hydrocodone/Acetaminophen 2 tabs q 6 hours as needed for severe pain 2. Toradol 10 mg q 6 hours 3. Medrol dose pack as instructed 4. Colace 100 mg PO BID for constipation while being on narcotics. May stop if loose Bowel Movements FOLLOW UP 1. With PCP- Dr Garcia 03/04/17 at 1:10 PM 2. With orthopedic- Dr Stuart per his instructions---> Call [phone] for for appointment in 4-5 days next week Medication Reconciliation New Medications: Methylprednisolone (Medrol Dosepak) 4 Mg Ashish 1 PKT PO UD for 6 Days, #1 PKT Docusate Sodium (Docusate Sodium) 100 Mg Cap 100 MG PO BID for 7 Days, #14 CAP Ketorolac Tromethamine (Ketorolac Tromethamine) 10 Mg Tab 10 MG PO QID for 10 Days, #40 TAB Changed Medications: Hydrocodone/Acetaminophen 5MG/325MG ([place] 5MG/325MG) Tab 2 TABLET PO Q6H PRN for Pain, #20 TAB (Changed from: 1-2 TABLET; 24) For Initial Treatment Continued Medications: Albuterol Sulfate (Proair Respiclick) 108 Mcg/Act Aer 2 PUFFS INH Q4 PRN for SOB/Wheezing Aspirin (Aspirin Chewable) 81 Mg Chew 81 MG PO DAILY Cetirizine (Zyrtec) 10 Mg Tab 10 MG PO DAILY PRN for allergy symptoms, TAB Cyclobenzaprine Hcl (Flexeril) 5 Mg Tab 1 TAB PO HS PRN for Muscle Spasms for 30 Days, #30 TAB Ketoconazole (Ketoconazole) 45 Appln/15 Gm Cr 1 APPLN EXT DAILY PRN for rash Lisinopril (Zestril) 10 Mg Tab 10 MG PO DAILY, TAB Montelukast Sodium (Singulair) 10 Mg Tab 1 TAB PO DAILY for 90 Days, #90 TAB 1 Refill Discontinued Medications: Ibuprofen (Ibuprofen) 600 Mg Tab 600 MG PO HS PRN for Pain Pseudoephedrine-Guaifenesin (Mucinex D) 1 Tab Tab 1 TAB PO BID PRN for Cough for 10 Days, #20 TAB Admission Information HPI (per Admitting provider): This is a 56 year old male with HTN, asthma, sleep apnea on CPAP, and other problems listed below who presents to the ED with low back pain. Patient reports having intermittent low back pain x 30 years which worsened 4 days ago. There was no recent trauma/ injury. He reports pain in lumbar area which radiates to the right lower extremity with burning pain. He was seen in ER yesterday for his pain and discharged with [place], which he took at home without relief. Then today while getting into the car he felt a popping/ needle like sensation in his low back and almost collapsed from severe pain. He was unable to ambulate due to the pain and was brought to the ER by ambulance. He was treated with total of 1.5 mg Dilaudid and IV Solu-Medrol in ER. Pain is now improved to 3/10. He voided normally this morning. Last BM was 3 days ago. He denies lower extremity weakness, numbness, groin paresthesias, bowel or bladder incontinence, fever, chills, cough, chest pain, SOB, abdominal pain, N/V/D. No history of spinal surgery. Physical Exam (per Admitting): General Appearance: no apparent distress, + obese, + pertinent finding ( alert 56 year old male, comfortable while lying in bed, daughter at bedside) Head: normocephalic, atraumatic Eyes: normal inspection, PERRL, EOMI, sclerae normal ENT: hearing grossly normal, pharynx normal Neck: supple, trachea midline Respiratory/Chest: lungs clear, normal breath sounds, no respiratory distress, no accessory muscle use Cardiovascular: regular rate, rhythm, no murmur Abdomen/GI: normal bowel sounds, non tender, soft Back: + pertinent finding (+ lumbosacral paraspinal tenderness. + straight leg raise on the left. ) Extremities/Musculoskelatal: no calf tenderness, no pedal edema Neurologic/Psych: alert, normal mood/affect, oriented x 3, + pertinent finding (hip flexion 4/5 bilat. ankle flexion/ extension 5/5 bilat. sensation to light tough grossly intact BLLE. ) Skin: normal color, warm/dry Hospital Course LUMBAR DISC HERNIATION L3-L4 L-spine MRI- Very large central extruded disc herniation with marked secondary compression of the thecal sac at the L3-4 level -IV Decadron 8 mg q 6 hours, IV Toradol 15 mg q 6 hours per ortho -IV Dilaudid 1 mg q 4 hours PRN for pain -Continue with PRN Flexeril -PT/OT evaluations done -Appreciate inputs from ortho- Plan is to control pain, PT/OT , discharge today with outpatient elective surgery next week. PLAN: Changed IV medications to PO- Medrol dose pack, Toradol 10 mg PO QID, [place] 2 tabs q 6 hours prn for pain per ortho instructions. Patient is doing well on PO medications since AM and comfortable going home. Prescriptions given by ortho including rolling walker prescription CONSTIPATION - Resolved -Miralex, Colace. Dulcolax PRN -Precipitated by pain medications- Narcotics HTN Stable -Continue lisinopril with parameters ASTHMA Not in exacerbation -Continue home inhaler and Singulair SLEEP APNEA -Continue CPAP DVT PROPHYLAXIS -Heparin SQ FULL CODE DISPOSITION Observation to med/surg Cleared for discharge by ortho. Okay to discharge home today Follows with Dr. Solo Garcia for primary care. Total time spent on discharge = 28 minutes This includes examination of the patient, discharge planning, medication reconciliation, and communication with other providers. Discharge Instructions Discharge Goals Goal(s): Decrease discomfort, Increase independence Activity Recommendations Activity Limitations: per Instructions/Follow-up section (as tolerated ) . Instructions / Follow-Up Instructions / Follow-Up MEDICATION CHANGES: Pain medications : 1. Hydrocodone/Acetaminophen 2 tabs q 6 hours as needed for severe pain 2. Toradol 10 mg q 6 hours 3. Medrol dose pack as instructed 4. Colace 100 mg PO BID for constipation while being on narcotics. May stop if loose Bowel Movements FOLLOW UP 1. With PCP- Dr Garcia 03/04/17 at 1:10 PM 2. With orthopedic- Dr Stuart per his instructions---> Call [phone] for for appointment in 4-5 days next week Current Hospital Diet Patient's current hospital diet: AHA Diet (Heart Healthy) Discharge Diet Recommended Diet: AHA Diet (Heart Healthy), Low Sodium Diet (2gm Na) Pending Studies Studies pending at discharge: no Medical Emergencies . Who to Call and When: Medical Emergencies: If at any time you feel your situation is an emergency, please call 911 immediately. . Non-Emergent Contact Non-Emergency issues call your: Primary Care Provider, Specialist (orthopedics) . . "Provider Documentation" section prepared by Renee Ledbetter. VTE Core Measure Inpt VTE Proph given/why not?: Treatment not indicated
[2017-02-22 18:05] VITALS: BP 134/65; PULSE 77; TEMP 37.1; O2SAT 94
[2017-02-22] MEDS ORDERED: METHYLPREDNISOLONE 4 MG TAB PO SCH (21:00)
[2017-02-23] MEDS ORDERED: METHYLPREDNISOLONE 4 MG TAB PO SCH ×2 (07:00→21:00)
[2017-02-24] MEDS ORDERED: METHYLPREDNISOLONE 4 MG TAB PO SCH (07:00)
[2017-02-25] MEDS ORDERED: METHYLPREDNISOLONE 4 MG TAB PO SCH (07:00)
[2017-02-26] MEDS ORDERED: METHYLPREDNISOLONE 4 MG TAB PO SCH (07:00)
[2017-02-27] MEDS ORDERED: METHYLPREDNISOLONE 4 MG TAB PO SCH (07:00)
[2017-03-13] MEDS ORDERED: LISI-791 PO (09:48)
[2017-03-13] MEDS ORDERED: ASPI81TA28 PO (09:48)
[2017-03-13] MEDS ORDERED: HYDR-5688 PO (09:48)
[2017-03-13] MEDS ORDERED: ALBU18002 INH (09:48)
[2017-03-13] MEDS ORDERED: NZRCR TOP (09:48)
[2017-03-13] MEDS ORDERED: CYCL10TA6 PO (09:48)
[2017-03-13] MEDS ORDERED: CETI10TA84 PO (09:48)
[2017-03-13] MEDS ORDERED: IBUP-1450 PO (09:48)
== END 2017-02-22 19:00 | disposition home or self-care (01) ==
LOC: ENRESERVTM → ENRESERVDT → EDBD 13:30 → C.EDC 13:32 → C.MSW 16:43
PROVIDERS: ADMIT Internal Medicine; ATTEND Internal Medicine
DX: M51.26 Other intervertebral disc displacement, lumbar region (principal); K59.00 Constipation, unspecified; I10 Essential (primary) hypertension; J45.909 Unspecified asthma, uncomplicated; G47.33 Obstructive sleep apnea (adult) (pediatric); E66.9 Obesity, unspecified; F17.290 Nicotine dependence, other tobacco product, uncomplicated; Z79.82 Long term (current) use of aspirin; Z90.49 Acquired absence of other specified parts of digestive tract; Z80.3 Family history of malignant neoplasm of breast; Z80.0 Family history of malignant neoplasm of digestive organs; Z82.3 Family history of stroke

== ENCOUNTER 2017-03-25 08:29 | Inpatient (IN) | payer BC, OTHER ==
[2017-03-13 09:48] VITALS: BMI 33.0
--- NOTE | 2017-03-13 10:15 | PAT Medication Instructions ---
Service Date Mar 13, 2017. Current Home Medication List Albuterol Sulfate (Proair Respiclick), 1 DOSE INH QID PRN for Shortness of Breath Aspirin (Aspirin Ec), 81 MG PO QAM Cetirizine (Zyrtec), 10 MG PO DAILY PRN for PRN Cyclobenzaprine Hcl (Flexeril), 10 MG PO HS PRN for Pain Hydrocodone/Acetaminophen 5MG/325MG ([place] 5MG/325MG), 1 TABLET PO QID PRN for Pain Ibuprofen (Motrin), 600 MG PO TID Ketoconazole (Ketoconazole), 1 DOSE TOP DAILY PRN for PRN Lisinopril (Zestril), 10 MG PO QAM Montelukast Sodium (Singulair), 1 TAB PO QAM Medication Instructions For Your Scheduled Surgery - Check with surgeon for instructions: Aspirin (Aspirin Ec), 81 MG PO QAM Ibuprofen (Motrin), 600 MG PO TID - Hold the following medications 24 hours prior to surgery: Ketoconazole (Ketoconazole), 1 DOSE TOP DAILY PRN for PRN - Hold the following medications the morning of surgery: Montelukast Sodium (Singulair), 1 TAB PO QAM Lisinopril (Zestril), 10 MG PO QAM Cetirizine (Zyrtec), 10 MG PO DAILY PRN for PRN - Take the following medications the morning of surgery with a sip of water: Albuterol Sulfate (Proair Respiclick), 1 DOSE INH QID PRN for Shortness of Breath Hydrocodone/Acetaminophen 5MG/325MG ([place] 5MG/325MG), 1 TABLET PO QID PRN for Pain (okay to take up to 4 hours prior to surgery) - Take the following medications as scheduled the night before surgery: Cyclobenzaprine Hcl (Flexeril), 10 MG PO HS PRN for Pain Albuterol Sulfate (Proair Respiclick), 1 DOSE INH QID PRN for Shortness of Breath Hydrocodone/Acetaminophen 5MG/325MG ([place] 5MG/325MG), 1 TABLET PO QID PRN for Pain If you have any questions please call us at [phone] (Harriett Kirkpatrick PA-C) or [phone] or [phone]
[2017-03-13 10:50] LABS: BASO % 0.2 %; BASO ABS # 0.01 K/uL (0-0.2); COMPLETE YES; EOS % 2.5 %; HEMATOCRIT 43.7 % (42-52); IG% 0.2 %; LYMPH % 30.1 %; LYMPH ABS # 1.72 K/uL (1.2-3.4); MEAN CELL VOLUME 97.3 fL (80-100); MEAN CORPUSCULAR HEMOGLOBIN 34.1 pg (25-34); MEAN PLATELET VOLUME 9.4 fL (7.4-10.4); MONO % 7.5 %; NEUT % 59.5 %; PLATELET COUNT 227 K/uL (130-400); RED BLOOD COUNT 4.49 M/uL (4.7-6.1); WHITE BLOOD COUNT 5.71 K/uL (4.8-10.8)
--- NOTE | 2017-03-13 11:12 | DIAGNOSTIC IMAGING REPORT ---
TWO VIEW CHEST CLINICAL HISTORY: Preoperative examination. FINDINGS: PA and lateral chest radiographs are obtained. No prior studies are available for comparison at the time of dictation. The heart is top normal for projection. The mediastinal contour is within normal limits. Minimal atelectasis is seen in the left lower lung. No airspace consolidation or pleural effusion is identified. There is no pneumothorax. The bony thorax appears intact. IMPRESSION: No active disease in the chest. Electronically signed by: Alonso Holman M.D. 03/13/2017 11:10 AM Dictated Date/Time: 03/13/2017 11:09 AM
--- NOTE | 2017-03-22 10:28 | HISTORY & PHYSICAL EXAMINATION ---
DATE OF ADMISSION: 03/25/2017 CHIEF COMPLAINT: Back and lower extremity weakness. WORKING DIAGNOSIS: Disk herniation L3-L4 with nerve root compromise. PAST MEDICAL HISTORY: Positive for asthma, sleep apnea, hypertension, no liver or kidney issues, no carcinoma, obesity. PAST SURGICAL HISTORY: Pin fixation, left hip. ALLERGIES: MOLD. SOCIAL HISTORY: He is a nonsmoker, non-ET[employer] user. REVIEW OF SYSTEMS: Denies any blurred vision, double vision, tinnitus, vertigo. Denies chest pain, palpitations. He has as of now no current shortness of breath at least on his visitation, no bowel and bladder issues, no nausea, vomiting. No urgency, frequency. He is not confused. OBJECTIVE: GENERAL: He is 6 feet 2 inches, 240 pounds. He is in distress and discomfort. He has pain with standing, walking, associated weakness. HEENT: Grossly normal. CARDIAC: Normal S1, S2. LUNGS: Clear. ABDOMEN: Soft, nontender. MUSCULOSKELETAL: He has decreased range of motion of lumbar spine, pain with percussion lumbar spine, weakness as well to the quadriceps region. No fasciculations, clonus or signs of upper motor neuron pathology. Images reviewed. IMPRESSION: Large disk herniation, central with compression of the thecal sac at L3-L4. DISPOSITION: Includes lumbar spine decompression laminectomy and discectomy, possible motion preserving technology.
[2017-03-25] VITALS (9 sets, daily range): BP systolic 98–146; BP diastolic 58–79; PULSE 67–81; TEMP 36.5–37.2; O2SAT 92–99; Ht 182.9 cm; Wt 112.0 kg
[~2017-03-25] VITALS: Ht 182.9 cm; Wt 112.0 kg
[~2017-03-25 08:29] MED LIST changes: +ALBU18002 INH; +ASPI81TA28 PO; +CEFAZOLIN 2000 MG/60 ML D5W 60 ML IV SCH; +CETI10TA84 PO; +CYCL10TA6 PO; +IBUP-1450 PO; +LACTATED RINGER'S 1000ML 1,000 ML IV SCH; +LISI-791 PO; +MONT1TAB3 PO; +NSS 1000ML IV SCH; +NZRCR TOP
[2017-03-25] MEDS ORDERED: MIDAZOLAM HCL 1 MG/ML 2ML VIAL ONE (08:33)
[2017-03-25] MEDS ORDERED: FENTANYL CITRATE INJ 50 MCG/1 ML 2 ML VIAL ONE (08:33)
[2017-03-25] MEDS ORDERED: GELATIN SPONGE SZ 100 ONE (10:40)
[2017-03-25] MEDS ORDERED: THROMBIN FOR SOLN 20000 UNIT KIT ONE (10:40)
[2017-03-25] MEDS ORDERED: BUPIVACAINE/EPINEPHRINE 0.5% MPF 1:200,000 30 ML VIAL ONE (10:41)
[2017-03-25] MEDS ORDERED: VANCOMYCIN HCL 1000MG/20ML VIAL ONE (10:41)
[2017-03-25] MEDS ORDERED: BACITRACIN 50000 UNIT VIAL ONE (10:41)
--- NOTE | 2017-03-25 10:47 | History & Physical Bridge Note ---
H&P Re-Evaluation Bridge Note: I have examined the patient, reviewed the History & Physical and in the interval since the performance of the History & Physical I have noted the following changes of clinical significance: No changes noted
[2017-03-25] MEDS ORDERED: HYDROmorphone INJ 2 MG/ML SYR/VIAL ONE ×2 (11:41→13:33)
[2017-03-25] MEDS ORDERED: CISATRACURIUM BESYLATE IV SOLN 2 MG/ML 10 ML VIAL ONE (11:45)
[2017-03-25] MEDS ORDERED: GLYCOPYRROLATE INJ 0.2 MG/ML VIAL ONE (11:45)
[2017-03-25] MEDS ORDERED: LIDOCAINE HCL 2% 2 ML VIAL (20MG/ML) ONE (11:45)
[2017-03-25] MEDS ORDERED: PROPOFOL IV EMULSION 10 MG/ML 20 ML VIAL IV ONE (11:45)
[2017-03-25] MEDS ORDERED: NEOSTIGMINE METHYLSULFATE 5 MG/5 ML SYR ONE (11:45)
[2017-03-25] MEDS ORDERED: ONDANSETRON INJ 2 MG/ML 2 ML VIAL ONE (11:45)
[2017-03-25] MEDS ORDERED: PHENYLEPHRINE HCL INJ 10 MG/ML VIAL ONE (11:45)
[2017-03-25] MEDS ORDERED: LARYING-O-JET KIT (LTA) EXT ONE ×2 (11:45)
[2017-03-25] MEDS ORDERED: DEXAMETHASONE SOD INJ 4 MG/ML VIAL ONE (11:45)
--- NOTE | 2017-03-25 13:16 | DIAGNOSTIC IMAGING REPORT ---
LUMBAR SPINE, INTRAOPERATIVE FLUOROSCOPY HISTORY: L3-L4 discectomy and fusion. FLUOROSCOPY TIME: 5 seconds. FINDINGS: Intraoperative fluoroscopy was provided for the lumbar spine. A single fluoroscopic spot image demonstrates posterior decompression and fusion at L3-L4 with pedicle screws and rods. The hardware appears intact. IMPRESSION: Fluoroscopy provided for a L3-L4 posterior decompression and fusion. Electronically signed by: Edward Casillas M.D. 03/25/2017 1:14 PM Dictated Date/Time: 03/25/2017 1:13 PM
[2017-03-25] MEDS ORDERED: SODIUM CHLORIDE 0.9% 1000ML 1,000 ML IV SCH (13:18)
--- NOTE | 2017-03-25 13:23 | [facility] Post Operative Brief Note ---
Immediate Operative Summary Operative Date Mar 25, 2017. Pre-Operative Diagnosis Large disc herniation, central with compression of the thecal sac at L3-L4 Post-Operative Diagnosis same as pre-operative Procedure(s) Performed L3-L4 Discectomy with Globus Transition Surgeon Dr. Silvio Stuart Photoradio Operator Surgeon(s) Homero Villalpando PA-C Estimated Blood Loss 140ml Findings disc, stenosis , instability Specimens none per surgeon Complication(s) None Disposition Recovery Room / PACU
[2017-03-25] MEDS ORDERED: EpHEDrine SULFATE INJ 50 MG/ML AMP IV PRN (13:30)
[2017-03-25] MEDS ORDERED: HYDROmorphone INJ 1 MG/ML SYR IV PRN (13:30)
[2017-03-25] MEDS ORDERED: LORAZEPAM INJ 1 MG in SYRINGE 0 ML IV PRN (13:30)
[2017-03-25] MEDS ORDERED: ONDANSETRON INJ 2 MG/ML 2 ML VIAL IV PRN ×2 (13:30)
[2017-03-25] MEDS ORDERED: METOCLOPRAMIDE HCL INJ 5 MG/ML 2 ML VIAL IV PRN (13:30)
[2017-03-25] MEDS ORDERED: ATROPINE SULFATE 0.1 MG/ML 5ML SYR IV PRN (13:30)
[2017-03-25] MEDS ORDERED: ALBUTEROL HFA INHALER 8.5 GM INH PRN (13:30)
[2017-03-25] MEDS ORDERED: CETIRIZINE HCL 10 MG TAB PO PRN (13:30)
[2017-03-25] MEDS ORDERED: MAGNESIUM HYDROXIDE SUSP 30 ML UDC PO PRN (13:30)
[2017-03-25] MEDS ORDERED: ACETAMINOPHEN 325 MG TAB PO PRN (13:30)
[2017-03-25] MEDS ORDERED: NALOXONE HCL 0.4 MG/1 ML VIAL/CARP IV PRN ×2 (13:30)
[2017-03-25] MEDS ORDERED: FLUMAZENIL 0.1 MG/1 ML 10 ML VIAL IV PRN (13:30)
[2017-03-25] MEDS ORDERED: LORAZEPAM 1 MG TAB PO PRN (13:30)
[2017-03-25] MEDS ORDERED: PROMETHAZINE HCL INJ 12.5 MG in SODIUM CHLORIDE 0.9% 50ML 50 ML IV PRN ×4 (13:30)
[2017-03-25] MEDS ORDERED: LABETALOL HCL IV 5 MG/ML 20ML IV PRN (13:30)
[2017-03-25] MEDS ORDERED: HYDROmorphone HCL 0.5MG/ML 50 ML CASSETTE ONE (13:33)
[2017-03-25 14:10] LABS: HEMATOCRIT 41.1 % (42-52)
--- NOTE | 2017-03-25 14:26 | OPERATIVE REPORT ---
DATE OF OPERATION: 03/25/2017 PREOPERATIVE DIAGNOSIS: Stenosis disc herniation, lumbar spine L4-L5. POSTOPERATIVE DIAGNOSES: Disc herniation L3-L4 lumbar spine, stenosis and mild instability, lumbar spine. PROCEDURES: Include lumbar spine laminectomy and discectomy L3-L4 lumbar spine, foraminotomy, partial facetectomy. We also instrumented the spine safely getting pedicle screws in 3-4. We also used a TRANSITION System from the Globus to maintain some motion but provide the patient with some stability. SURGEON: Dr. Stuart. CANCELING AND CUTTING CONTROL CLERK: Homero Villalpando PA-C. COMPLICATIONS: No complications. BLOOD LOSS: Controlled at 150. DESCRIPTION OF PROCEDURE: The patient was taken to the operating room, a general intubated anesthetic provided to the patient, placed prone, scrubbed, prepped, draped in sterile fashion. We engaged the L3-4 interspace lumbar spine. Skin incision, fascial incision, put in a deep self-retaining. This was a good sized individual, we used 3-inch blades just to get to the facet joints. We did a classic laminectomy and discectomy L3-L4, bilateral foraminotomies, partial facetectomies. We came in on the dominant side, which is the right hand side, retracting the dura in a medial direction. We did a formal discectomy at L3-L4. I felt that he had some instability because of the facet joints being moderately unstable so I instrumented the spine safely getting pedicle screws in at L3 and L4 with the Globus transition system. I was pleased with the decompression, instrumentation for the patient. We irrigated and closed over Hemovac drain and over vancomycin powder with 1-0 Vicryl, 2-0 and 3-0 nylon on the skin. Sterile dressings applied. The patient returned to PACU or recovery room in improved satisfactory stable condition. There were no apparent complications. I attest to the content of the Intraoperative Record and any orders documented therein. Any exceptio ns are noted below.
[2017-03-25] MEDS: HYDROmorphone HCL 0.5MG/ML 50 ML CASSETTE IV PRN ×2 (14:39→22:56)
--- NOTE | 2017-03-25 14:50 | Anesthesiology Progress Note ---
Anesthesia Post Op Note Date & Time Mar 25, 2017 at 14:49 Vital Signs Pain Intensity: 3 Vital Signs Past 12 Hours Date Time Temp Pulse Resp B/P Pulse Ox O2 Delivery O2 Flow Rate FiO2 03/25/17 14:34 77 16 03/25/17 14:34 83 16 96 03/25/17 14:30 136/61 03/25/17 14:29 63 11 97 03/25/17 14:29 64 11 03/25/17 14:25 124/61 03/25/17 14:24 65 16 03/25/17 14:24 63 16 96 03/25/17 14:20 115/60 03/25/17 14:19 71 13 99 03/25/17 14:19 68 13 03/25/17 14:15 117/60 03/25/17 14:14 68 14 03/25/17 14:14 66 14 99 03/25/17 14:10 117/65 03/25/17 14:09 67 14 03/25/17 14:09 67 14 99 03/25/17 14:06 120/68 03/25/17 14:04 69 10 03/25/17 14:04 67 10 100 03/25/17 13:59 71 15 03/25/17 13:59 72 15 96 03/25/17 13:58 36.8 03/25/17 13:55 72 16 03/25/17 13:55 72 16 128/66 98 03/25/17 13:50 77 16 125/68 100 03/25/17 13:50 77 16 03/25/17 13:45 71 21 03/25/17 13:45 73 21 135/72 100 03/25/17 13:40 77 17 126/77 100 03/25/17 13:40 76 17 03/25/17 13:35 77 27 03/25/17 13:35 77 27 138/74 100 03/25/17 13:30 72 17 141/80 100 03/25/17 13:30 72 17 03/25/17 13:25 68 16 137/79 100 03/25/17 13:25 69 16 03/25/17 13:20 78 18 157/80 100 03/25/17 13:20 77 18 03/25/17 13:15 36.9 77 16 157/80 100 Mask 10 03/25/17 08:56 36.7 67 18 114/74 97 Room Air Notes Mental Status: alert / awake / arousable, participated in evaluation Pt Amnestic to Procedure: Yes Nausea / Vomiting: adequately controlled Pain: adequately controlled Airway Patency, RR, SpO2: stable & adequate BP & HR: stable & adequate Hydration State: stable & adequate Anesthetic Complications: no major complications apparent
[2017-03-25] MEDS: SODIUM CHLORIDE 0.9% 1000ML 1,000 ML IV SCH (16:12)
[2017-03-25] MEDS: KETOROLAC TROMETHAMINE 30 MG/ML VIAL IV. SCH ×2 (19:04→23:46)
[2017-03-25] MEDS: DEXAMETHASONE INJ 10 MG in SYRINGE 0 ML IV SCH (20:13)
[2017-03-25] MEDS: CEFAZOLIN IV 2,000 MG in DEXTROSE 5% 50ML 50 ML IV SCH (20:13)
[2017-03-26] MEDS: SODIUM CHLORIDE 0.9% 1000ML 1,000 ML IV SCH (03:37)
[2017-03-26] MEDS: DEXAMETHASONE INJ 10 MG in SYRINGE 0 ML IV SCH ×3 (03:37→20:15)
[2017-03-26] MEDS: CEFAZOLIN IV 2,000 MG in DEXTROSE 5% 50ML 50 ML IV SCH ×2 (03:37→11:25)
[2017-03-26 04:54] VITALS: BP 96/52; PULSE 79; TEMP 36.4; O2SAT 97
[2017-03-26] MEDS ORDERED: OXYCODONE/ACETAMINOPHEN 5-325 TAB PO PRN (06:00)
[2017-03-26] MEDS ORDERED: BISACODYL 5 MG TABEC PO PRN (06:00)
[2017-03-26] MEDS ORDERED: HYDROmorphone INJ 2 MG/ML SYR/VIAL IV PRN (06:00)
[2017-03-26] MEDS ORDERED: DC PCA ONE (06:00)
[2017-03-26] MEDS ORDERED: HYDROmorphone INJ 1 MG/ML SYR IV PRN (06:00)
[2017-03-26] MEDS ORDERED: BISACODYL 10 MG SUPP PR PRN (06:00)
[2017-03-26] MEDS: KETOROLAC TROMETHAMINE 30 MG/ML VIAL IV. SCH ×3 (06:01→18:01)
[2017-03-26] MEDS ORDERED: NURSING VERBAL MED ORDER ONE (06:15)
--- NOTE | 2017-03-26 08:05 | ORTHOPEDICS PROGRESS NOTE ---
DATE: 03/26/2017 SUBJECTIVE: He is alert and oriented this morning, still has some significant pain. No chest pain or shortness of breath. Some paresthesias, but no deficit. ASSESSMENT: Status post lumbar spine discectomy and instrumentation L3-L4 lumbar spine. DISPOSITION: Includes instructions, precautions, education, up ambulatory today. Tentative discharge home tomorrow morning.
[2017-03-26 08:08] VITALS: BP 103/65; PULSE 62; TEMP 36.9; O2SAT 96
--- NOTE | 2017-03-26 08:59 | Anesthesiology Progress Note ---
Anesthesia Post Op Note Date & Time Mar 26, 2017 at 08:58 Vital Signs Pain Intensity: 3.0 Vital Signs Past 12 Hours Date Time Temp Pulse Resp B/P Pulse Ox O2 Delivery O2 Flow Rate FiO2 03/26/17 08:08 36.9 62 16 103/65 96 Room Air 03/26/17 07:25 Room Air 03/26/17 04:54 36.4 79 16 96/52 97 Room Air 03/25/17 23:57 Room Air 03/25/17 23:40 36.8 70 16 103/64 95 Room Air Notes Mental Status: alert / awake / arousable, participated in evaluation Pt Amnestic to Procedure: Yes Nausea / Vomiting: adequately controlled Pain: adequately controlled Airway Patency, RR, SpO2: stable & adequate BP & HR: stable & adequate Hydration State: stable & adequate Anesthetic Complications: no major complications apparent
[2017-03-26] MEDS: LISINOPRIL 10 MG TAB PO SCH (09:04)
[2017-03-26] MEDS: MONTELUKAST SOD 10 MG TAB PO SCH (09:04)
[2017-03-26] MEDS: ASPIRIN 81 MG ECTAB PO SCH (09:04)
[2017-03-26] MEDS: POLYETHYLENE (MIRALAX) 17 GM PACK PO SCH (09:04)
[2017-03-26] MEDS: OXYCODONE/ACETAMINOPHEN 5-325 TAB PO PRN ×3 (09:12→20:12)
[2017-03-26 11:09] VITALS: BP 99/58; PULSE 71; TEMP 36.7; O2SAT 95
[2017-03-26 15:25] VITALS: BP 110/64; PULSE 80; TEMP 36.9; O2SAT 95
[2017-03-26 23:28] VITALS: BP 95/54; PULSE 91; TEMP 37.1; O2SAT 95
[2017-03-27] MEDS: DEXAMETHASONE INJ 10 MG in SYRINGE 0 ML IV SCH (03:25)
[2017-03-27] MEDS: OXYCODONE/ACETAMINOPHEN 5-325 TAB PO PRN ×3 (03:36→14:26)
[2017-03-27 06:28] VITALS: BP 103/58; PULSE 81; TEMP 36.8; O2SAT 95
[2017-03-27] MEDS: MONTELUKAST SOD 10 MG TAB PO SCH (07:24)
[2017-03-27] MEDS: LISINOPRIL 10 MG TAB PO SCH (07:24)
[2017-03-27] MEDS: ASPIRIN 81 MG ECTAB PO SCH (07:24)
[2017-03-27] MEDS: POLYETHYLENE (MIRALAX) 17 GM PACK PO SCH (07:24)
--- NOTE | 2017-03-27 07:26 | Discharge Instructions ---
Discharge Instructions Date of Service Mar 27, 2017. Admission Reason for Admission: Lumbar Disc Herniation L3-L4 Discharge Discharge Diagnosis / Problem: as above Discharge Goals Goal(s): Improve function Activity Recommendations Activity Limitations: as noted below Lifting Limitations: until after follow-up appointment Exercise/Sports Limitations: until after follow-up appointment May Resume Sexual Activity: after follow-up appointment Shower/Bathe: keep incision dry Driving or Machine Use: home ,rest, recover . Current Hospital Diet Patient's current hospital diet: Regular Diet Discharge Diet Recommended Diet: Regular Diet Procedures Procedures Performed: L3-L4 Discectomy with Globus Transition Pending Studies Studies pending at discharge: no Medical Emergencies . Who to Call and When: Medical Emergencies: If at any time you feel your situation is an emergency, please call 911 immediately. . Non-Emergent Contact Non-Emergency issues call your: Surgeon Call Non-Emergent contact if: your pain is concerning you . "Provider Documentation" section prepared by Silvio Stuart. . VTE Core Measure Inpt VTE Proph given/why not?: Treatment not indicated
--- NOTE | 2017-03-27 07:27 | Discharge Instructions ---
Discharge Instructions Date of Service Mar 27, 2017. Admission Reason for Admission: Lumbar Disc Herniation L3-L4 Discharge Discharge Diagnosis / Problem: as above Discharge Goals Goal(s): Improve function Activity Recommendations Activity Limitations: as noted below Lifting Limitations: until after follow-up appointment Exercise/Sports Limitations: until after follow-up appointment May Resume Sexual Activity: after follow-up appointment Shower/Bathe: keep incision dry . Instructions / Follow-Up Instructions / Follow-Up MEDICATIONS: Please take your prescriptions as instructed at your pre-op appointment. SPECIAL CARE: The following information is intended to answer some of the common questions and concerns regarding your surgery. Each patient is an individual and receives individual counselling throughout the course of treatment, from diagnosis to surgery all the way through recovery. What follows is not an exhaustive list, but should be a useful guide to some of the common questions and concerns patients have regarding their surgeries. These are not provided to keep you from calling us; rather, they give you something accurate and concrete to reference as you recover from your procedure. If you need us, we are available to you. As always, if you are not sure about something, call us at [phone]. MEDICAL EMERGENCIES: For these conditions, call 911 or go to your local hospital-based Emergency Department - not [facility] or equivalent. * Paralysis * Severe chest pain or difficulty breathing * Swelling or redness of either leg Spine procedures can be rather complex and though complications are rare, they do occur. In such cases, effective advice regarding emergency situations cannot always be addressed over the telephone. You may be referred to the emergency department for more effective management of your problem. Activity Limitations: It is important to give your body time to heal, so please limit your activities : * In general, don't do anything that moves your spine too much. You should avoid contact sports, twisting or heavy lifting while you recover. * 5-10 pounds is all you should attempt to lift. * You should not plan on driving for approximately 3 weeks and you should avoid traveling more than 30-45 minutes at a time. Longer trips should be broken down with walking breaks spaced appropriately. * Physical therapy is not usually required. * Walking and good posture practices will help you recover and regain your function. * Avoid straining or sudden changes in position. * In general, the goal is to take it easy and recover. Don't cause any new problems. Just relax. Showers: * Do not take a bath, use a Jacuzzi or hot tub or otherwise submerge your incision. * It is usually safe to take a shower 4-5 days after your surgery. * Your incision does not require any special creams or ointments. * Simply clean it with soap and water, dry and re-dress with a clean bandage afterwards. Incision: * Keep incision clean, dry and protected until your first follow-up appointment. * Some amount of drainage and redness is normal. Any drainage should be fairly clear and not have a foul odor. * If you feel anything is wrong or you have excessive drainage, please call us. * Your stitches and umer will be removed 10-14 days after your surgery. At the time of your first post-op visit. * Neck surgeries are typically closed with a suture underneath the skin. The steri-strips over the incision should be maintained until we see you in the office. Bracing: * You may be provided with a back or neck brace to encourage good posture and prevent injury. It will remind you not to do too much as you heal and will alert others to the fact that you have had a surgery. * Back braces may be removed for showers and when you are resting at home. They must be worn when you are walking around for any period of time or for travel. * For neck surgery, you will likely be provided with two cervical collars. The soft collar ([place] or foam rubber) is worn most commonly throughout the day and while sleeping. The plastic collar (provided at the hospital) is for showering/bathing. * Except while eating, collars should remain in place. More specifically, bracing is provided for a purpose and should be worn. * Please obtain your brace or collars prior to your operation and bring them to the hospital with you on the day of surgery. * You should also bring your collars to your post-op appointment with Dr. Stuart. You should always take good care of your body and practice healthy habits, especially following surgery. You should: * Follow your doctor's treatment plan * Sit and stand properly with good posture (ears over shoulders, shoulders over hips) Don't slouch * Learn to lift correctly * Exercise regularly (low-impact aerobic exercise is especially good, but check with your doctor first) * Generally, be up and walking for 5-10 minutes at a time at least 3-4 times per day from the day you get home * Increasing walking to tolerance until you can walk for 20-30 minutes at a time * Attain and maintain a healthy body weight * Eat healthy foods ( a well-balanced, low-fat diet rich in fruits and vegetables) and get enough calcium * Avoid excessive use of alcohol When to call our office - If you notice any of the following: * Increased pain not relieve by pain medicine * Fevers greater then 100 degrees F, chills or flu symptoms * Increased redness around incision * Drainage from the incision that is not clear * Any foul smelling drainage * Swelling or fluid collection beneath the skin Miscellaneous: * In the hospital, you may be given a walker or cane for support while walking. These are temporary needs and are intended to prevent injuries due to falls. You may discontinue them when you feel strong and steady enough on your feet. * Sleep in a comfortable position. We find that many patients find a lounge chair or recliner with several pillows to be beneficial in the early post-operative period. * The support stockings should be used for 7-10 days and may be discontinued when you are back to walking more and conducting usual household activities. No problem is insignificant. We are here to help you and get you well. Contact us at [phone]. Definitions: Foraminotomy: If part of the disc or a bone spur (osteophyte) is pressing on a nerve as it leaves the vertebra (through an exit called the foramen), a foraminotomy may be done. Otomy means "to make an opening." A foraminotomy is making the opening of the foramen larger, so the nerve can exit without being compressed. Laminotomy: Similar to the foraminotomy, a laminotomy makes a larger opening, this time in your bony plate protecting your spinal canal and spinal cord (the lamina). The lamina may be pressing on your nerve, so the surgeon may make more room for the nerves using a laminotomy. Laminectomy: Sometimes, a laminotomy is not sufficient. The surgeon may need to remove all or part of the lamina. This procedure is called a laminectomy. This can often be done at many levels without any harmful effects. Current Hospital Diet Patient's current hospital diet: Regular Diet Discharge Diet Recommended Diet: Regular Diet Procedures Procedures Performed: L3-L4 Discectomy with Globus Transition Pending Studies Studies pending at discharge: no Medical Emergencies . Who to Call and When: Medical Emergencies: If at any time you feel your situation is an emergency, please call 911 immediately. . Non-Emergent Contact Non-Emergency issues call your: Surgeon . "Provider Documentation" section prepared by Silvio Stuart. . VTE Core Measure Inpt VTE Proph given/why not?: Treatment not indicated
[2017-03-27 08:42] VITALS: BP 122/67; PULSE 83
--- NOTE | 2017-03-27 08:57 | DISCHARGE SUMMARY ---
SUBJECTIVE: Improved, stable, alert and oriented. Minimal complaints of pain, no confusion. No shortness of breath. OBJECTIVE: Vital signs stable, 36.8 temperature, lab work not indicated. ASSESSMENT: Status post spinal reconstruction discectomy instrumentation L3-L4 improved stable, short run. DISPOSITION: Instructions, precautions, education given here today. Will discharge him home in improved stable condition. Back brace for support. He has a walker at home. He has medication at home. It is mandatory he keep his wound clean and dry at all times. We should see him back for followup in 10-14 days.
[2017-03-27 10:54] VITALS: BP 122/67; PULSE 83; TEMP 36.8; O2SAT 95
== END 2017-03-27 15:08 | disposition home or self-care (01) | DRG 518 ==
LOC: ENRESERVTM → ENRESERVDT → C.ACU 08:29 → C.3E 09:00
PROVIDERS: ADMIT Orthopaedic Surgery Orthopaedic Surgery of the Spine; ATTEND Orthopaedic Surgery Orthopaedic Surgery of the Spine
PROC: 0ST20ZZ Resection of Lumbar Vertebral Disc, Open Approach (ICD-10-PCS; principal; 2017-03-25 10:00)
PROC: 01NB0ZZ Release Lumbar Nerve, Open Approach (ICD-10-PCS; principal; 2017-03-25 10:00)
PROC: 0SH004Z Insertion of Internal Fixation Device into Lumbar Vertebral Joint, Open Approach (ICD-10-PCS; principal; 2017-03-25 10:00)
PROC: 0SH00BZ Insertion of Interspinous Process Spinal Stabilization Device into Lumbar Vertebral Joint, Open Approach (ICD-10-PCS; principal; 2017-03-25 10:00)
DX: M51.06 Intervertebral disc disorders with myelopathy, lumbar region (principal); M48.06 Spinal stenosis, lumbar region; M53.2X6 Spinal instabilities, lumbar region; J45.909 Unspecified asthma, uncomplicated; I10 Essential (primary) hypertension